=== PATIENT | female | born 1960 | race Caucasian/White ===

== ENCOUNTER 2018-11-05 08:48 | Observation (INO) ==
[2018-11-05] MEDS ORDERED: ASPIRIN PO ONE (09:02)
[2018-11-05] MEDS ORDERED: MORPHINE IV ONE (09:11)
[2018-11-05] MEDS ORDERED: ZOFRAN IV ONE (09:11)
[2018-11-05] MEDS ORDERED: PROTONIX IV ONE (09:11)
[2018-11-05] MEDS ORDERED: SODIUM CHLORIDE 0.9% INJ ONE (09:11)
[2018-11-05 09:56] LABS: BASO# 0.04 X1000 (0.0-0.2); BASO% 0.8 % (0.0-0.8); EOS# 0.14 X1000 (0.0-0.7); EOS% 2.7 % (0.0-10.0); HEMOGLOBIN 12.4 g/dL (12.0-16.0); IMM GRAN# 0.01 X1000 (0.0-0.04); IMM GRAN% 0.2 % (0.0-0.5); LYMPH# 1.52 X1000 (1.2-3.4); LYMPH% 28.8 % (20.5-51.1); MCH 29.2 PG (27-31); MCHC 34.4 g/dL (33-37); MCV 84.9 FL (81-99); MONO% 7.6 % (1.7-9.3); MPV 11.4 FL (7.4-10.4); NEUT# 3.16 X1000 (1.4-6.5); NEUT% 59.9 % (42.2-75.2); PLT 226 X1000 (130-400); RBC 4.24 XMIL (4.2-5.4); RDW 14.9 % (11.5-14.5); WBC 5.27 X1000 (4.8-10.8)
[2018-11-05 10:01] LABS: PROTIME 11.5 Seconds (11.0-16.0); PTT 26.5 Seconds (22.3-41.8)
[2018-11-05] MEDS ORDERED: G.I. COCKTAIL PO ONE (10:01)
[2018-11-05 10:07] LABS: AGAP 17; ALBUMIN 3.9 g/dL (3.5-5.0); ALKALINE PHOSPHATASE 93 U/L (32-104); BUN 19 mg/dL (8-22); CALCIUM 9.7 mg/dL (8.8-10.2); CHLORIDE 105 mmol/L (98-107); CK PROFILE 39 U/L (24-173); COSMO 288; CREATININE 0.9 mg/dL (0.5-0.9); ESTIMATED GFR > 60; GLUCOSE 153 mg/dL (70-104); GOT 15 U/L (10-30); GPT 17 U/L (10-36); POTASSIUM 3.7 mmol/L (3.5-5.1); SODIUM 142 mmol/L (136-145); TCO2 20 mmol/L (25-35); TOTAL PROTEIN 6.3 g/dL (6.3-8.3)
[2018-11-05 10:34] LABS: INR 0.8
--- NOTE | 2018-11-05 10:46 | Diag Imaging Result Doc PS360 ---
EXAM: CHEST-2 VIEWS HISTORY: cp TECHNIQUE: Chest two views COMPARISON: 01/28/2016 FINDINGS: The lungs are well expanded. The heart is not enlarged. The vessels are not distended. There are no infiltrates. No pleural effusions. Mild scoliosis. IMPRESSION: No acute abnormality. Electronically signed by Edi Perez 11/05/2018 10:44 AM
--- NOTE | 2018-11-05 11:26 | PROVIDER DOCUMENTATION ---
This chart was entered by Enoc Lind Scribe, acting as scribe for Sixto Lind MD. HPI-Chest Pain - General Chief Complaint: Chest Pain Stated Complaint: CHEST PAIN Time Seen by Provider: 11/05/18 09:04 Source: patient, family Allergies/Adverse Reactions: Patient Allergies Allergy/AdvReac Type Severity Reaction Status Date / Time acetaminophen [From Lortab] AdvReac ITCHING Verified 11/05/18 09:01 hydrocodone bitartrate * AdvReac ITCHING Verified 11/05/18 09:01 [From Lortab] Penicillins AdvReac ANAPHYLAXIS Verified 11/05/18 09:01 prednisone AdvReac ANAPHYLAXIS Verified 11/05/18 09:01 Sulfa (Sulfonamide AdvReac HIVES Verified 11/05/18 09:01 Antibiotics) Home Medications: Home Medication List Medication Instructions Recorded Confirmed Last Taken Type Buspirone HCl 15 mg PO TID 10/31/15 07/14/17 Unknown History Fenofibrate,Micronized 134 mg PO DAILY 10/31/15 07/14/17 Unknown History [Fenofibrate] Omeprazole 40 mg PO DAILY 10/31/15 07/14/17 Unknown History ROSUVAstatin [Crestor] 10 mg PO QHS 10/31/15 07/14/17 Unknown History Sitagliptin Phos/Metformin HCl 1 tab PO BID 01/28/16 07/14/17 Unknown History [Janumet 50-1,000 mg Tablet] Dulaglutide [Trulicity] 0.75 mg SQ DIRECTED 07/14/17 07/14/17 Unknown History Iron Fum,Ps/Folic/Bcomp,C No.9 1 each PO BID 07/14/17 07/14/17 Unknown History [Folivane-Plus Capsule] Losartan [Cozaar] 100 mg PO DAILY 07/14/17 07/14/17 Unknown History Montelukast Sodium [Singulair] 10 mg PO DAILY 07/14/17 07/14/17 Unknown History - History of Present Illness-CP Nature of Presenting Problem: 58 yof with a hx of heart arrythmia (unknown type) , CKD, diabetes, and htn presents with cc of left parasternal chest pain that radiates down left arm with vomiting since 0815 this am. Reports took one nitro at 0826 this am with no relief. Last stress test 2 years ago. 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 reports pt had flu 3 weeks ago, dx uri 10 days ago and is taking Doxy. Pt reports allergic to sulfa, penicillin, prednisone, norco, and sudafed. Pt also reports a hx of panic attacks. Quality of Pain: reports: aching Severity in ED: mild Onset/Duration: this morning Timing: still present Review of Systems - Adult - REVIEW OF SYSTEMS - ADULT Constitutional: denies: chills, fever, fatique Eyes: reports: no symptoms reported Ears, Nose, Mouth & Throat: reports: no symptoms reported Cardiovascular: reports: chest pain. denies: edema, irregular heart rate, orthopnea, palpitations, syncope, other Respiratory: denies: cough, hemoptysis, pleurisy, shortness of breath, wheezing Gastrointestinal: reports: nausea, vomiting. denies: abdominal pain, constipation, diarrhea, difficulty swallowing, frequent heartburn, poor appetite , rectal bleeding Genitourinary: reports: no symptoms reported Musculoskeletal: denies: bone pain, back pain, joint pain, joint swelling, muscle aches Integumentary: reports: no symptoms reported Neurological: reports: no symptoms reported Psychiatric: reports: no symptoms reported Endocrine: reports: no symptoms reported Hematologic/Lymphatic: reports: no symptoms reported Allergic/Immunologic: reports: no symptoms reported All Other Systems: Reviewed and Negative Past History - Adult - PAST MEDICAL HISTORY-ADULT Review of Records: reports: Nursing Assessment Review, Medications Reviewed Major Childhood Illnesses: reports: denies history Cardiovascular: reports: HTN, hyperlipidemia Respiratory: reports: denies history Gastrointestinal: reports: diverticulosis, inflammatory bowel disease, IBS Obstetrical/Gynecological: reports: denies history Genitourinary: reports: denies history Musculoskeletal: reports: denies history Neurological: reports: denies history Endocrine/Immune: reports: Diabetes Other Conditions: reports: denies history - PRIOR SURGERIES/PROCEDURES Surgical/Procedure History: reports: cholecystectomy, hysterectomy, , other (fistulaectomy) - PRIOR HOSPITALIZATIONS Prior Hospitalizations: reports: for similar symptoms - IMMUNIZATION STATUS Childhood Immunizations: See Nurse Assessment Flu Vaccine: See Nurse Assessment - FAMILY HISTORY Family History: reviewed, not pertinent - SOCIAL HISTORY Smoking: other (former) Substance Use: none/never Physical Exam-General - PHYSICAL EXAM-ADULT Initial Vital Signs Reviewed: Yes - CONSTITUTIONAL General Appearance: alert, mild distress. negative: appears well - EYES Eyes: PERRL/EOMI, pink conjunctivae - HEAD, EARS, NOSE, MOUTH & THROAT HENMT: moist mucous membranes - NECK Neck: non-tender, full range of motion, supple, normal inspection - RESPIRATORY Respiratory: chest non-tender, lungs clear, normal breath sounds, no pleuratic chest pain, no respiratory distress, no accessory muscle use - CARDIOVASCULAR Cardiovascular: normal peripheral pulses, regular rate, rhythm, no edema, no gallop, no JVD - GASTROINTESTINAL (ABDOMEN) Abdominal Exam: non tender, soft, no organomegaly, no pulsatile mass - MUSCULOSKELETAL Extremity: normal range of motion, non-tender, no pedal edema, no calf tenderness - SKIN Integumentary: normal color, normal turgor, warm/dry - NEUROLOGIC Neurologic: grossly normal - PSYCHIATRIC Psych/Mental Status: normal mood/affect, normal thought content, normal thought process, oriented x 3 - HEART Score HEART Score: History: Moderately Suspicious HEART Score: ECG: Non-Specific Repolarization Disturbance/LBBB/PM HEART Score: Age: 45-65 Years HEART Score: Risk Factors for Atherosclerotic Disease: 1 or 2 Risk Factors HEART Score: Troponin: < or = Normal Limit Total HEART Score:: 4 Progress - PLAN OF CARE/RESULTS Progress/Plan/Lab Results: Vital Signs - 8 hr 11/05/18 08:56 11/05/18 10:00 Temperature 97.4 F L Pulse Rate 65 67 Respiratory Rate 16 17 Blood Pressure 138/82 125/75 O2 Sat by Pulse Oximetry 99 99 Laboratory Results - last 24 hr 11/05/18 11/05/18 11/05/18 09:10 09:10 09:10 WBC 5.27 RBC 4.24 Hgb 12.4 Hct 36.0 L MCV 84.9 MCH 29.2 MCHC 34.4 RDW Std Deviation 14.9 H Plt Count 226 MPV 11.4 H Immature Gran % (Auto) 0.2 Neut % (Auto) 59.9 Lymph % (Auto) 28.8 Graham % (Auto) 7.6 Eos % (Auto) 2.7 Baso % (Auto) 0.8 Immature Gran # (Auto) 0.01 Neut # (Auto) 3.16 Lymph # (Auto) 1.52 Graham # (Auto) 0.40 Eos # (Auto) 0.14 Baso # (Auto) 0.04 PT INR PTT (Actin FS) D-Dimer, Quantitative 0.42 Sodium 142 Potassium 3.7 Chloride 105 Carbon Dioxide 20 L Anion Gap 17 BUN 19 Creatinine 0.9 Estimated GFR/1.73 m2 > 60 BUN/Creatinine Ratio 21 Glucose 153 H POC Glucose Calculated Osmolality 288 Calcium 9.7 Total Bilirubin 0.40 AST 15 ALT 17 Alkaline Phosphatase 93 Creatine Kinase 39 Troponin T Xif-K-Kceqbkuvsvm Pept Total Protein 6.3 Albumin 3.9 Globulin 2.0 Albumin/Globulin Ratio 2.0 11/05/18 11/05/18 11/05/18 09:10 09:10 09:10 WBC RBC Hgb Hct MCV MCH MCHC RDW Std Deviation Plt Count MPV Immature Gran % (Auto) Neut % (Auto) Lymph % (Auto) Graham % (Auto) Eos % (Auto) Baso % (Auto) Immature Gran # (Auto) Neut # (Auto) Lymph # (Auto) Graham # (Auto) Eos # (Auto) Baso # (Auto) PT 11.5 INR 0.80 PTT (Actin FS) 26.5 D-Dimer, Quantitative Sodium Potassium Chloride Carbon Dioxide Anion Gap BUN Creatinine Estimated GFR/1.73 m2 BUN/Creatinine Ratio Glucose POC Glucose Calculated Osmolality Calcium Total Bilirubin AST ALT Alkaline Phosphatase Creatine Kinase Troponin T < 0.010 Ace-L-Xocjnzqtues Pept 36 Total Protein Albumin Globulin Albumin/Globulin Ratio 11/05/18 09:26 WBC RBC Hgb Hct MCV MCH MCHC RDW Std Deviation Plt Count MPV Immature Gran % (Auto) Neut % (Auto) Lymph % (Auto) Graham % (Auto) Eos % (Auto) Baso % (Auto) Immature Gran # (Auto) Neut # (Auto) Lymph # (Auto) Graham # (Auto) Eos # (Auto) Baso # (Auto) PT INR PTT (Actin FS) D-Dimer, Quantitative Sodium Potassium Chloride Carbon Dioxide Anion Gap BUN Creatinine Estimated GFR/1.73 m2 BUN/Creatinine Ratio Glucose POC Glucose 171 H Calculated Osmolality Calcium Total Bilirubin AST ALT Alkaline Phosphatase Creatine Kinase Troponin T Rbf-Z-Htattagnjfi Pept Total Protein Albumin Globulin Albumin/Globulin Ratio Orders Category Date Time Status Cardiac Monitoring DIRECTED Care 11/05/18 09:02 Active Oxygen Therapy- ED Nursing DIRECTED Care 11/05/18 09:02 Active Saline Loc NOW Care 11/05/18 09:02 Completed CHEST-2 VIEWS [RAD] Stat Exams 11/05/18 09:02 Completed CBC WITH ELECTRONIC DIFF [HEME] Stat Lab 11/05/18 09:10 Completed CK PROFILE [SP CHEM] Stat Lab 11/05/18 09:10 Completed COMPREHENSIVE METABOLIC PANEL [CHEM] Stat Lab 11/05/18 09:10 Completed D-DIMER [COAG] Stat Lab 11/05/18 09:10 Completed PRO B-NATRIURETIC PEPTIDE Stat Lab 11/05/18 09:10 Completed PROTIME WITH INR [COAG] Stat Lab 11/05/18 09:10 Completed PTT [COAG] Stat Lab 11/05/18 09:10 Completed TROPONIN T Stat Lab 11/05/18 09:10 Completed Aspirin Med 11/05/18 09:02 Discontinued 325 mg PO NOW ONE Lido/Parkinson Alk/Al&mg Hydrox [G.i. Cocktail] Med 11/05/18 10:01 Discontinued 30 ml PO NOW ONE Morphine Med 11/05/18 09:11 Discontinued 4 mg IV NOW ONE Ondansetron [Zofran] Med 11/05/18 09:11 Discontinued 4 mg IV NOW ONE Pantoprazole [Protonix] Med 11/05/18 09:11 Discontinued 40 mg IV NOW ONE Sodium Chloride 0.9% Med 11/05/18 09:11 Discontinued 10 ml INJ NOW ONE CP/SOB/Palp >45 yrs of Age Stat Oth 11/05/18 09:02 Ordered EKG [EKG] Stat Ther 11/05/18 08:50 Ordered Result Diagrams: 11/05/18 09:10 11/05/18 09:10 - EKG 1 Time of EKG reading by physician:: 08:53 EKG Read and Signed by:: Sixto Lind EKG Interpretation (*Must complete 3 of following elements*): Abnormal (cannot rule out anterior infarct age undetermined) Rate: 62 Rhythm: nsr [place]: normal QRS: normal NC Interval: normal - XRAY 1 XRAY: Bilateral XRAY Study: Chest Impression: Normal (IMPRESSION: No acute abnormality. Electronically signed by Edi Perez 11/05/2018 10:44 AM) - CONSULTS/PCP/HOSPITALIST Notification #1 *Consult/PCP/Hospitalist*: dr LASSITER Time Discussed: 11:25 Consult Disposition: Admit Departure - Departure Date of Disposition Decision: 11/05/18 Time of Disposition Decision: 11:25 DIAGNOSIS: Chest pain Disposition: ADMITTED INPATIENT 09 Certified Medical Emergency: Emergent Condition: Stable Referrals and Follow-Ups: Tammy Rene MD [Primary Care Provider] - - Critical Care Note This patient required my direct & personal management of CC.: No Attestation - Physician/ LUIS ENRIQUE Attestation Patient care was provided by Advanced Practice Provider:: No The physician spent face to face time with patient:: Yes Advanced Practice Provider documentation review:: Supervising physician onsite and consulted in the evaluation and care of this patient. The physician did have a face to face encounter with the patient. This chart was documented by the indicated scribe, (Enoc Lind Scribe) and accurately reflects the services I performed and decisions made by me, Sixto Lind MD, as attested by the provider's signature.
--- NOTE | 2018-11-05 14:35 | EKG Report ---
Test Performed on : 11/05/2018 08:51:32 AM Test Reason : CP Blood Pressure : / mmHG Vent. Rate : 059 BPM Atrial Rate : 227 BPM P-R Int : 000 ms QRS Dur : 082 ms QT Int : 408 ms P-R-T Axes : 071 001 081 degrees QTc Int : 403 ms Atrial flutter. with variable AV block. with premature ventricular or aberrantly conducted complexes. Possible Inferior infarct , age undetermined Abnormal ECG When compared with ECG of 14-JUL-2017 14:47, Atrial flutter. has replaced Sinus rhythm. Borderline criteria for Inferior infarct are now present Nonspecific T wave abnormality no longer evident in Inferior leads Nonspecific T wave abnormality, improved in Lateral leads QT has shortened Unconfirmed Result
[2018-11-05] MEDS ORDERED: ZOFRAN IV PRN (15:13)
[2018-11-05] MEDS ORDERED: NITROGLYCERIN SL PRN (15:13)
--- NOTE | 2018-11-05 15:56 | HISTORY AND PHYSICAL ---
PRIMARY CARE PHYSICIAN: Dr. Rene. CHIEF COMPLAINT: Chest pain. HISTORY OF PRESENTING ILLNESS: This is a 58-year-old female who presents to [facility] ER with complaints of left-sided chest pain that radiated to the left side of her arm that began around 8:15 this morning. She took 1 nitroglycerin but did not have any relief, started vomiting and had shortness of breath so she came to the emergency room for evaluation. States that she had the flu about 3 weeks ago and then approximately 10 days ago was diagnosed with a upper respiratory infection and was started on doxycycline. Workup in the emergency room showed her first set of cardiac enzymes were negative. Chest x- ray was no acute abnormality. EKG showed normal sinus rhythm at 62 but she will be admitted for further evaluation and treatment. PAST MEDICAL HISTORY: Diabetes type 2, diverticulosis, chronic kidney disease, hypertension, panic attacks and a heart arrhythmia that is unknown. PAST SURGICAL HISTORY: Of a cholecystectomy, fistulectomy, and hysterectomy. FAMILY HISTORY: Reviewed and noncontributory. SOCIAL HISTORY: She currently lives with family. Denies any tobacco, alcohol or illicit drug use. ALLERGIES: To acetaminophen, hydrocodone, penicillin, prednisone and sulfa drugs. HOME MEDICATIONS: A current list will be obtained and we will restart as appropriate after reviewing, will have nursing update and confirm home medications. LABORATORY DATA: Showed a white blood cell count of 5.27, hemoglobin of 12.4, hematocrit 36, platelets 226,000, PT and INR of 11.5 and 0.80, D-dimer of 0.42. Sodium 142, potassium 3.7, chloride 105, CO2 20, BUN of 19, creatinine 0.9, glucose 153. Cardiac enzymes x1 set has been negative. EKG showed normal sinus rhythm at 62. Chest x-ray showed no acute abnormality. REVIEW OF SYSTEMS: She denied any fever, chills, blurred vision, dizziness. She was positive for chest pain that radiated to her left arm, nausea, vomiting, shortness of breath , was positive for a nonproductive cough, had some nausea and vomiting. Denied any constipation, diarrhea, burning or hurting with urination. PHYSICAL EXAMINATION: On arrival she had a temperature of 97.4 degrees, pulse 65, respirations 16, blood pressure 138/82, saturating 99% on room air. GENERAL: This is a 58-year-old female who is lying in the bed and answers questions appropriately. HEENT: Normocephalic, atraumatic. Normal ENT inspection. Oropharynx and nares are clear. Pupils are equal, round, reactive to light, accommodation. NECK: Normal inspection, normal range of motion. LUNGS: Clear to auscultation bilaterally with equal lung expansion and chest wall movement. HEART: With regular rate and rhythm. No murmurs, rubs, or gallops. ABDOMEN: Soft, nontender, nondistended. Bowel sounds are present x4 quadrants. MUSCULOSKELETAL: She had 5/5 strength x4 extremities. NEUROLOGICAL: The cranial nerves 2-12 appear grossly intact. ASSESSMENT: 1. Chest pain. 2. Nausea, vomiting. 3. Hypertension. 4. Diabetes type 2. PLAN: She is being admitted to the medical unit at [facility], placed on telemetry , O2 per protocol. She will be on a healthy heart diet and NPO after midnight for a myocardial perfusion scan in the a.m. We will do serial cardiac enzymes x3 sets, place on aspirin 325 mg p.o. daily, Prilosec 20 mg p.o. daily, Zofran 4 mg IV q.4 hours p.r.n. Will repeat CBC, BMP in the a.m. , again have nursing to update and confirm home medications then will review and restart as appropriate. Dictated by LOR Arnold for Mathew Gaona MD cc: LOR Arnold MD Dr. Gill Pt seen and examined with LOR, pt presents with chest pain and risk factors for CAD, that being said she has never had a full cardiac workup which includes full cardiolite stress imaging, she has only had treadmill testing bevause she refused them in the past due to concern over dye interaction with her kidneys, exam is normal, questionable inferior TX changes on admission EKG, will plan for stress in am if serial enzymes are negative. APENOT MTDD
[2018-11-05] MEDS ORDERED: PRAVACHOL PO SCH (21:00)
[2018-11-05] MEDS ORDERED: SINGULAIR PO SCH (21:00)
[2018-11-06] MEDS: ICAR-C PLUS PO SCH ×3 (00:21→14:24)
[2018-11-06] MEDS ORDERED: PRILOSEC PO SCH ×2 (07:00)
[2018-11-06 08:24] LABS: BASO# 0.04 X1000 (0.0-0.2); BASO% 0.8 % (0.0-0.8); EOS# 0.17 X1000 (0.0-0.7); EOS% 3.6 % (0.0-10.0); HEMATOCRIT 33.9 % (37.0-47.0); HEMOGLOBIN 11.2 g/dL (12.0-16.0); IMM GRAN# 0.01 X1000 (0.0-0.04); IMM GRAN% 0.2 % (0.0-0.5); LYMPH# 1.51 X1000 (1.2-3.4); LYMPH% 32.1 % (20.5-51.1); MCH 28.6 PG (27-31); MCV 86.7 FL (81-99); MONO# 0.34 X1000 (0.11-0.59); MONO% 7.2 % (1.7-9.3); MPV 11.7 FL (7.4-10.4); NEUT# 2.64 X1000 (1.4-6.5); NEUT% 56.1 % (42.2-75.2); PLT 218 X1000 (130-400); RBC 3.91 XMIL (4.2-5.4); RDW 15.2 % (11.5-14.5); WBC 4.71 X1000 (4.8-10.8)
[2018-11-06 08:57] LABS: AGAP 12; BUN 18 mg/dL (8-22); CALCIUM 9.1 mg/dL (8.8-10.2); CHLORIDE 105 mmol/L (98-107); COSMO 284; CREATININE 0.8 mg/dL (0.5-0.9); ESTIMATED GFR > 60; GLUCOSE 121 mg/dL (70-104); POTASSIUM 4.4 mmol/L (3.5-5.1); SODIUM 141 mmol/L (136-145); TCO2 24 mmol/L (25-35)
[2018-11-06] MEDS ORDERED: ASPIRIN PO SCH (09:00)
[2018-11-06] MEDS: BUSPAR PO SCH ×5 (11:51→18:14)
[2018-11-06] MEDS: PRILOSEC PO SCH ×2 (11:52→14:24)
--- NOTE | 2018-11-06 13:02 | GRADED EXERCISE REPORT ---
DATE: 11/06/2018 ORDERING PHYSICIAN: Dr. Gaona/LOR Arnold. INDICATION: Chest pain. FINDINGS: Baseline EKG shows T-wave inversions, possible inferior VA in 3 and AVF, also T-wave inversions in V4 through V6. The patient underwent testing per modified Jovanny protocol. Goal heart rate was 136, which she achieved in about 3 minutes, 2.5 minutes. She had a little bit of chest tightness during the procedure. She was injected with the Technetium without difficulty. I did feel she had some ST changes in 3 and AVF that were about a millimeter which would be positive, although she did not have dima chest pain at that time. V5 and V6 looked like they had early ST changes, but they did not qualify to a millimeter, but her T-wave inversions disappeared. In any case, she was improved, tolerated the procedure without difficulty. Post blood pressure 135/81, heart rate of 85. Test felt to be clinically mildly electrically positive. Myocardial perfusion reported separately. cc: Mathew Gaona MD
[2018-11-06] MEDS ORDERED: LOVENOX SUBQ SCH (13:30)
--- NOTE | 2018-11-06 13:39 | EKG Report ---
Test Performed on : 11/06/2018 06:19:55 AM Test Reason : CP Blood Pressure : / mmHG Vent. Rate : 066 BPM Atrial Rate : 066 BPM P-R Int : 186 ms QRS Dur : 076 ms QT Int : 412 ms P-R-T Axes : 059 001 228 degrees QTc Int : 431 ms Normal sinus rhythm. T wave abnormality, consider inferior ischemia Abnormal ECG When compared with ECG of 05-NOV-2018 08:51, (Unconfirmed) Sinus rhythm. has replaced Atrial flutter. Non-specific change in ST segment in Lateral leads T wave inversion now evident in Inferior leads Nonspecific T wave abnormality, worse in Lateral leads Confirmed by Odin Patel MD ([id number]) on 11/10/2018 7:52:56 AM
[2018-11-06] MEDS ORDERED: NS 1,000 ML IV ONE (13:42)
[2018-11-06] MEDS: PRINIVIL PO SCH ×2 (13:56→14:24)
--- NOTE | 2018-11-06 14:04 | EKG Report ---
Test Performed on : 11/06/2018 1:59:47 PM Test Reason : cp Blood Pressure : / mmHG Vent. Rate : 081 BPM Atrial Rate : 081 BPM P-R Int : 176 ms QRS Dur : 076 ms QT Int : 410 ms P-R-T Axes : 061 -07 239 degrees QTc Int : 476 ms Normal sinus rhythm. Inferior infarct , age undetermined ST & T wave abnormality, consider lateral ischemia Abnormal ECG When compared with ECG of 06-NOV-2018 06:19, (Unconfirmed) T wave inversion more evident in Inferior leads Confirmed by Odin Patel MD ([id number]) on 11/10/2018 7:51:35 AM
[2018-11-06] MEDS ORDERED: ASPIRIN EC PO SCH (14:15)
[2018-11-06] MEDS ORDERED: LOPRESSOR PO SCH (14:15)
[2018-11-06 15:23] VITALS: BP 104/56
--- NOTE | 2018-11-06 15:55 | CARDIOLOGY CONSULTATION ---
DATE: 11/06/2018 REASON FOR CONSULTATION: Cardiology consulted for inferior myocardial infarction. Ms. Latham is a 58-year-old lady who came to the emergency room, complains of having some nausea and vomiting and shortness of breath and subsequently she took nitroglycerin tablet when she started having retrosternal chest discomfort which he describes as severe in character radiating to the left chest. The patient had some flu-like symptoms about 3 weeks back and within the last 6 months she had another episode of similar type of chest pain which was less intense but retrosternal radiating to the left shoulder and left arm. Patient at the time of my examination was pain-free. There is no palpitations. There is no dizziness or syncope. REVIEW OF SYSTEM: 14 point review of systems was done. GI: There is no history of hematemesis or melena. Central nervous system: No focal weakness to suggest a CVA, TIA. : There is no dysuria or hematuria. PAST MEDICAL HISTORY: 1. Diabetes. 2. Diverticulosis. 3. Hypertension. 4. Anxiety disorder. 5. Cholecystectomy. 6. Fistulectomy. 7. . 8. Hysterectomy. ALLERGIES: She is allergic to acetaminophen, hydrocodone and penicillin. HOME MEDICATIONS: Included lisinopril 10 mg a day, Januvia, metformin 1 tablet p.o. twice daily, pravastatin 20, Trulicity, iron, omeprazole, buspirone. PHYSICAL EXAMINATION: Blood pressure was 104/56. Cardiovascular: Normal jugular venous pressure. There no thyromegaly. No carotid bruit. First and second heart sounds were heard. There was no S3 gallop. Respiratory: Normal air entry. There is no crepitations or rhonchi. Abdomen: Soft, nontender. There was no guarding or rigidity. Bowel sounds were heard. Central nervous system: Moving all 4 extremities. Examination of extremities revealed no pedal edema. DATA: Electrocardiogram revealed inferior Q-waves with and subsequent electrocardiograms were done which revealed normal sinus rhythm with Q-waves in the inferior wall suggestive of inferior myocardial infarction with nonspecific ST-T changes in the lateral leads. Her laboratory examination revealed sodium 141, potassium 4.4, BUN 18, creatinine 0.8. Troponin was abnormal at 0.131. Triglycerides 412. Chest x-ray was unremarkable. Hemoglobin 12.4, WBC 5.27, hematocrit 36, platelet count of 226,000. ASSESSMENT AND PLAN: 1. Ms. Gaston Latham is a 58-year-old lady with history of diabetes, hypertension, diverticulosis comes with complaints of having nausea, vomiting and retrosternal chest discomfort with radiation to the left arm described as severe in character. Patient has inferior myocardial infarction, non-ST elevation, abnormal troponin. Given this, I have recommended that she undergo left heart catheterization. Risks, benefits, alternatives were explained. Patient will be sent transferred to [facility] for left heart catheterization too. 2. Will get an echocardiogram to assess cardiac and valvular function. 3. In addition to aspirin, we will put her on beta-blockers and high-intensity statins. 4. We will give her Lovenox 1 mg/kg subcutaneous twice daily. 5. Diabetes management per hospitalist service. Thank you for the consult. Will follow hospital course. cc: Farhad Dorado MD MTDD
--- NOTE | 2018-11-06 16:52 | PROGRESS NOTE ---
DATE: 11/06/2018 SUBJECTIVE: The patient has no major complaints. OBJECTIVE: Vital signs: Blood pressure is 104/56, heart rate 79, respiratory rate 18, temperature 98.2 degrees, 96% on 2 L. Cardiovascular: Regular rate and rhythm. Pulmonary: Bilateral breath sounds clear to auscultation. Gastrointestinal: Soft, nontender, nondistended. Bowel sounds are positive. LABORATORY DATA: White count has 4, hemoglobin 11, hematocrit 33, platelets 218. Basic was normal. Troponin unfortunately and I guess they were not called 0.279 and 0.131 were positive. CKs were normal. LDL was only 60. PROBLEM LIST: 1. Chest pain which is at this point felt to be unstable angina and maybe even [id number] myocardial infarction. She has ruled in. Unfortunately, we did not get the stress test, and she had EKG changes per my interpretation inferiorly and some dynamic EKG changes in her lateral leads. I do not have her myocardial perfusion imaging available yet, but regardless, she will need a cardiac catheterization and possibly intervention. We will initiate aspirin, Lovenox, beta tamika. She is on an LETITIA inhibitor. She is on Lipitor. She is doing better, or she is chest pain-free at this point, but she will need a cardiac catheterization. We are arranging to get her to [place]. There is no bed at this time. 2. Diabetes. Appears to be stable. We will continue her regular medications. Now reportedly, she is diabetic, and she is on metformin as an outpatient and Januvia. We have held these because of her n.p.o. status. We need to follow her blood sugars and check a sliding scale. We will follow closely. cc: Mathew Gaona MD
[2018-11-06 17:13] LABS: HEMOGLOBIN A1C 6.7 % (4.8-6.0)
[2018-11-06] MEDS ORDERED: LIPITOR PO SCH ×2 (21:00)
[2018-11-06] MEDS ORDERED: HUMULIN R (PARKWAY) SUBQ SCH (21:00)
[2018-11-07] MEDS ORDERED: PATIENT'S OWN MED SUBQ SCH (09:00)
--- NOTE | 2018-11-07 17:10 | Diag Imaging Result Document ---
PROCEDURE NAME: MYOCARDIAL PERF SCAN, STR/REST - 11/06/2018 STUDY: Same day rest/stress treadmill exercise myocardial perfusion study. REQUESTING PHYSICIAN: Dr. Gaona INDICATION: Chest pain. DESCRIPTION: The patient came into the nuclear lab and received a rest injection of technetium 99 sestamibi 10.6 mCi on 11/06/2018. Multiple views of the heart were obtained at rest. Subsequently, the patient underwent a treadmill exercise stress test and at peak exercise she was injected with technetium 99 sestamibi 30.9 mCi. Multiple tomographic views of the cardiac structures were obtained following the completion of the protocol. SUMMARY OF THE MYOCARDIAL PERFUSION PORTION OF THE STUDY: Dr. Gaona has reported the ECG portion of the test. Poststress tomographic views of the left ventricle showed a severe relatively focal lateral inferolateral wall defect. This appears to involve the mid segment of the inferolateral and inferior wall of the left ventricle. The rest images suggest very minimal if any at all reversibility of the aforementioned defect. The polar plots reveal the same. There is suggestion of minimal degree of inducible ischemia involving an area of scar of the inferolateral wall of the left ventricle. That involves a relatively limited segment of myocardium, however, it is somewhat peculiar in shape. The gated SPECT shows excellent left ventricular systolic function with an ejection fraction of 73% with an end-systolic volume of 60 mL. The lung/heart ratio is normal at 0.38. The TID is 0.77. CONCLUSION: In summary, this study shows: 1. Abnormal poststress myocardial perfusion scan. There is scintigraphic evidence of a moderate scar involving the lateral-inferolateral wall of the left ventricle with very minimal brandin infarct ischemia within the territory of the circumflex coronary artery. 2. Preserved left ventricular systolic function with an ejection fraction of 73 % with questionable focal hypokinesis of the lateral wall. Clinical correlation is strongly recommended. cc: MD Thea Murphy CRNP Alexis R. Penot, MD MTDD
== END 2018-11-06 19:58 | disposition short-term general hospital (02) ==
LOC: P.MEDSURG 08:48 → P.ED 08:48
PROVIDERS: ATTEND Internal Medicine
CPT/HCPCS: 36415; 71020; 71046; 78452; 80048; 80053; 80061; 82550; 82948; 83036; 83721; 83880; 84484; 85025; 85379; 85610; 85730; 93005; 93010; 93017; 94761; 96372; 96374; 96375; 99285; A9270; A9500; C9113; G0378; J1650; J2270; J2405; J7030; S0164; XXXXX